=== PATIENT | female | born 2000 | race American Indian/Alaskan Native ===

== ENCOUNTER 2022-03-27 14:53 | Emergency (ER) | payer MEDICAID ==
[2022-03-27 15:14] VITALS: BP 133/65
== END 2022-03-27 21:08 | disposition left against medical advice (07) ==
LOC: ED 14:53
DX: T14.8XXA Other injury of unspecified body region, initial encounter (principal); Z53.21 Procedure and treatment not carried out due to patient leaving prior to being seen by health care provider